=== PATIENT | female | born 1970 | race American Indian/Alaskan Native ===

== ENCOUNTER 2018-05-15 13:42 | Emergency (ER) | payer SELFPAY ==
--- NOTE | 2018-05-15 13:54 | Emergency Department Report ---
Blank Doc - Documentation Documentation: Patient comes in for fatigue times 1 week. Hx/o anemia. No pain. This initial assessment diagnostic orders/clinical plan/treatment (s) is/Are subject change based on patient's health status, clinical progression and re- assessment by fellow clinical providers in the ED. Further treatment and work-up at subsequent clinical providers discretion. Patient/guardians urged not to elope from their condition may be serious if not clinically assessed and managed. Initial order include:
[2018-05-15 14:10] LABS: Basophils % (Auto) 0.6 % (0.0-1.8); Eosinophils % (Auto) 0.4 % (0.0-4.3); Hematocrit 33.1 % (30.3-42.9); Hemoglobin 10.7 gm/dl (10.1-14.3); Lymphocytes # (Auto) 1.5 K/mm3 (1.2-5.4); Mean Corpuscular HGB Conc 32 % (30-34); Mean Corpuscular Volume 71 fl (79-97); Monocytes # (Auto) 0.4 K/mm3 (0.0-0.8); Monocytes % (Auto) 7.6 % (0.0-7.3); Platelet Count 358 K/mm3 (140-440); Red Blood Count 4.66 M/mm3 (3.65-5.03)
[2018-05-15 14:12] LABS: Mean Corpuscular Hemoglobin 23 pg (28-32); Red Cell Distribution Width 20.1 % (13.2-15.2)
[2018-05-15 14:34] LABS: Alanine Aminotransferase 15 units/L (7-56); Albumin 4.2 g/dL (3.9-5); BUN/Creatinine Ratio 13; Blood Urea Nitrogen 10 mg/dL (7-17); Calcium 8.6 mg/dL (8.4-10.2); Hemolysis Index 14
[2018-05-15 15:27] LABS: Bilirubin,Urine NEG (Negative); Blood,Urine NEG (Negative); Color,Urine Colorless (Yellow); Protein,Urine <15 mg/dL mg/dL (Negative); Urobilinogen,Urine < 2.0 mg/dL (<2.0); WBC,Urine < 1.0 /HPF (0.0-6.0)
--- NOTE | 2018-05-15 15:35 | Emergency Department Report ---
HPI - General Chief Complaint: Dizziness Time Seen by Provider: 05/15/18 13:50 - HPI HPI: 48-year-old female presents to the emergency department with a 2 to three-day history of generalized fatigue. Patient has a history of iron deficiency anemia and thought that she might be having an exacerbation of this as she has been eating a lot of ice and says that she feels she does when she has a low hemoglobin level. Otherwise she denies any significant past medical history. She has not taken anything for her symptoms prior to presentation. She denies any fever, headache, chest pain, shortness of breath, nausea, vomiting. No recent travel or sick contacts at home. ED Past Medical Hx - Past Medical History Additional medical history: AMENIA - Surgical History Additional Surgical History: C SECTION GASTRIC BYPASS/ TUBAL LIG. - Social History Smoking Status: Never Smoker Substance Use Type: None - Medications Home Medications: Home Medications Medication Instructions Recorded Confirmed Last Taken Type Ondansetron [Zofran Odt] 4 mg PO Q8HR PRN #12 tab.rapdis 05/15/18 Unknown Rx ED Review of Systems ROS: Stated complaint: VERY COLD/WEAK Other details as noted in HPI Constitutional: other (fatigue). denies: fever Eyes: denies: eye pain, vision change ENT: denies: ear pain, throat pain Respiratory: denies: cough, shortness of breath Cardiovascular: denies: chest pain, palpitations Gastrointestinal: denies: abdominal pain, vomiting Genitourinary: denies: dysuria, discharge Musculoskeletal: denies: back pain, arthralgia Skin: denies: rash, lesions Neurological: denies: headache, numbness Physical Exam - Physical Exam Vital Signs: Vital Signs 05/15/18 13:51 Temperature 97.6 F Pulse Rate 94 H Respiratory 18 Rate Blood Pressure 152/45 O2 Sat by Pulse 100 Oximetry Physical Exam: GENERAL: The patient is well-developed well-nourished. HEENT: Normocephalic. Atraumatic. Patient has moist mucous membranes. EYES: Extraocular motions are intact. Pupils are equal and reactive to light bilaterally. NECK: Supple. Trachea is midline. CHEST/LUNGS: Clear to auscultation. There is no respiratory distress noted. HEART/CARDIOVASCULAR: Regular. There is no tachycardia. There is no obvious murmur. ABDOMEN: There is no abdominal distention. SKIN: Skin is warm and dry. NEURO: The patient is awake, alert, and oriented. The patient is cooperative. The patient has no focal neurologic deficits. The patient has normal speech. Cranial nerves II through XII grossly intact. MUSCULOSKELETAL: There is no tenderness or deformity. There is no limitation range of motion. There is no evidence of acute injury. ED Course Vital Signs 05/15/18 13:51 Temperature 97.6 F Pulse Rate 94 H Respiratory 18 Rate Blood Pressure 152/45 O2 Sat by Pulse 100 Oximetry ED Medical Decision Making - Lab Data Result diagrams: 05/15/18 14:00 05/15/18 14:00 - Radiology Data Radiology results: image reviewed interpreted by me: Xray of the right shoulder shows some degenerative changes but no fracture, dislocation or any acute process. - Medical Decision Making This patient presents to the emergency department with a complaint of a 2-3 day history of increased fatigue. She thought that she might be anemic secondary to some previous episodes of anemia requiring transfusion or symptomatically anemia in the past. However her hemoglobin today is greater than 10. She essentially had a normal metabolic panel except for mildly low decreased potassium level that was replaced with potassium chloride. On examination the patient does not have a focal, motor or sensory deficits in her cranial nerves have been intact. TSH level was normal as well. The patient also separately complained of right shoulder pain so an x-ray was done that showed some degenerative changes but otherwise no fracture, dislocation or any acute process. Despite the patient's complaint of fatigue, patient was seen ambulating around the emergency department and appears stable and full of energy. Patient had some complaints of nausea but also was seen eating food. Patient's vital signs were stable throughout her ED course. For these reasons the patient appears safe for discharge home at this time. She was given a prescription for antiemetics and encouraged follow-up with a primary care physician. She will return to the ER with any worsening of her symptoms or any acute distress. - Differential Diagnosis anemia, hypothyroidism, electrolyte abnormalities, UTI Critical Care Time: No Critical care attestation.: If time is entered above; I have spent that time in minutes in the direct care of this critically ill patient, excluding procedure time. ED Disposition Clinical Impression: Nausea, Hypokalemia, Elevated blood pressure reading Fatigue Qualifiers: Fatigue type: unspecified Qualified Code(s): R53.83 - Other fatigue Right shoulder pain Qualifiers: Chronicity: acute Qualified Code(s): M25.511 - Pain in right shoulder Disposition: DC-01 TO HOME OR SELFCARE Is pt being admited?: No Condition: Stable Instructions: Hypokalemia (ED), Arthralgia (ED), Fatigue (ED) Additional Instructions: Please follow-up with your primary care physician in the next few days. Return to the emergency Department with any worsening of your symptoms or any acute distress. Prescriptions: Ondansetron [Zofran Odt] 4 mg PO Q8HR PRN #12 tab.rapdis PRN Reason: Nausea Referrals: Primary Care Physician, Your [Other] - 2-3 Days Time of Disposition: 16:33
[2018-05-15] MEDS ORDERED: TYLENOL ONE (15:40)
[2018-05-15] MEDS ORDERED: ZOFRAN ODT PO ONE (15:46)
[2018-05-15] MEDS ORDERED: ZOFRAN IM ONE (16:31)
[2018-05-15] MEDS ORDERED: K-DUR PO ONE (16:36)
--- NOTE | 2018-05-15 16:45 | XRay Report ---
PROCEDURE: XR SHOULDER 2+V RT TECHNIQUE: 3 views right shoulder HISTORY: right shoulder pain COMPARISONS: None FINDINGS: Normal bony mineralization. Calcification along the expected supraspinatus insertion compatible with calcific tendinitis. Mild soft tissue reticulation projects over the acromion and superior lateral deltoid. Mild soft tissue prominence at the acromioclavicular joint with minimal degenerative spurring. Glenohumeral joint space is unremarkable. Scapula is intact. Imaged right lung apex is clear. IMPRESSION: Calcific tendinitis distal supraspinatus. Mild before meals hypertrophy. Recommend correlation with MRI right shoulder.. This document is electronically signed by Mahsa Valentin MD., May 15 2018 04:42:46 PM ET
[2018-05-15 16:51] VITALS: BP 132/80
== END 2018-05-15 16:50 | disposition home or self-care (01) ==
LOC: ED 13:42
DX: R53.83 Other fatigue (principal); M25.511 Pain in right shoulder; E87.6 Hypokalemia; D64.9 Anemia, unspecified; D50.9 Iron deficiency anemia, unspecified
CPT/HCPCS: 36415; 73030; 80053; 81001; 83735; 84443; 85025; 86850; 86900; 86901; 96372; 99284; J2405; Q0162

== ENCOUNTER 2018-05-16 21:44 | Emergency (ER) | payer OTHER ==
[2018-05-16] MEDS ORDERED: NACL 0.9% 1000 ML 1,000 ML IV ONE (22:19)
[2018-05-16] MEDS ORDERED: ZOFRAN IV ONE (22:20)
--- NOTE | 2018-05-16 22:21 | Emergency Department Report ---
ED Abdominal Pain HPI - General Chief Complaint: Psych Stated Complaint: ANXIETY/ABD PAIN Time Seen by Provider: 05/16/18 22:13 Source: patient, EMS Mode of arrival: Ambulatory Limitations: No Limitations - History of Present Illness Initial Comments: Patient is a 48-year-old female that presents emergency room with complaints of epigastric pain and anxiety and depression. Patient states that she generalized stress lately due to family . Patient states she also been having nausea and vomiting. Patient states she is unable to eat due to the epigastric pain and nausea and vomiting for the past 3 hours. Patient states the pain is out of 10. Patient states the pain does not radiate. Patient denies chest pain shortness of breath. Patient states that the pain is better with rest and worse with palpation and movement. Patient denies diarrhea. Patient denies fever. Patient denies chills. Patient denies suicidal and homicidal ideations. Patient states she was seen here yesterday and was improving. However patient states that due to the fact she started becoming stressed out her symptoms flared back up. MD Complaint: abdominal pain -: Sudden Location: epigastric Radiation: none Migration to: no migration Severity: severe Severity scale (0 -10): 10 Quality: cramping Consistency: constant Improves With: rest Worsens With: vomiting, movement Associated Symptoms: nausea, vomiting. denies: diarrhea, fever, chills, constipation, dysuria, hematemesis, hematochezia, melena, hematuria, anorexia, syncope - Related Data LMP (females 10-50): unknown Previous Rx's Medication Instructions Recorded Last Taken Type Esomeprazole Magnesium [NexIUM] 40 mg PO QDAY #20 capsule. 05/17/18 Unknown Rx Ondansetron [Zofran ODT TAB] 4 mg PO Q8HR PRN #12 tab.rapdis 05/17/18 Unknown Rx Allergies Allergy/AdvReac Type Severity Reaction Status Date / Time No Known Allergies Allergy Verified 05/15/18 13:43 ED Review of Systems ROS: Stated complaint: ANXIETY/CHEST PAIN Other details as noted in HPI Constitutional: denies: chills, fever Eyes: denies: eye pain, eye discharge, vision change ENT: denies: ear pain, throat pain Respiratory: denies: cough, shortness of breath, wheezing Cardiovascular: denies: chest pain, palpitations Endocrine: no symptoms reported Gastrointestinal: abdominal pain, nausea, vomiting. denies: diarrhea Genitourinary: denies: urgency, dysuria, discharge Musculoskeletal: denies: back pain, joint swelling, arthralgia Skin: denies: rash, lesions Neurological: denies: headache, weakness, paresthesias Psychiatric: anxiety, depression. denies: auditory hallucinations, visual hallucinations, homicidal thoughts, suicidal thoughts Hematological/Lymphatic: denies: easy bleeding, easy bruising ED Past Medical Hx - Past Medical History Previous Medical History?: Yes Additional medical history: AMENIA. Low K+ - Surgical History Past Surgical History?: Yes Additional Surgical History: C SECTION GASTRIC BYPASS/ TUBAL LIG. - Family History Family history: no significant - Social History Smoking Status: Never Smoker Substance Use Type: None - Medications Home Medications: Home Medications Medication Instructions Recorded Confirmed Last Taken Type Esomeprazole Magnesium [NexIUM] 40 mg PO QDAY #20 capsule. 05/17/18 Unknown Rx Ondansetron [Zofran ODT TAB] 4 mg PO Q8HR PRN #12 tab.waylon 05/17/18 Unknown Rx ED Physical Exam - General Limitations: No Limitations General appearance: alert, in no apparent distress - Head Head exam: Present: atraumatic, normocephalic - Eye Eye exam: Present: normal appearance, PERRL Pupils: Present: normal accommodation - ENT ENT exam: Present: mucous membranes moist - Neck Neck exam: Present: normal inspection - Respiratory Respiratory exam: Present: normal lung sounds bilaterally. Absent: respiratory distress - Cardiovascular Cardiovascular Exam: Present: regular rate, normal rhythm. Absent: systolic murmur, diastolic murmur, rubs, gallop - GI/Abdominal GI/Abdominal exam: Present: soft, tenderness (epigastric tenderness), normal bowel sounds - Extremities Exam Extremities exam: Present: normal inspection - Back Exam Back exam: Present: normal inspection - Neurological Exam Neurological exam: Present: alert, oriented X3 - Psychiatric Psychiatric exam: Present: normal affect, normal mood - Skin Skin exam: Present: warm, dry, intact, normal color. Absent: rash ED Course Vital Signs 05/16/18 05/16/18 05/17/18 22:02 22:09 01:22 Temperature 98.1 F 97.9 F Pulse Rate 72 69 Respiratory 20 20 18 Rate Blood Pressure 147/97 160/87 [Right] O2 Sat by Pulse 100 100 100 Oximetry - Reevaluation(s) Reevaluation #1: Discussed all results with patient. Patient voiced understanding of results. Patient will be given a by mouth challenge. Patient was given pain medication. The patient tolerates by mouth challenge patient will be discharged home. 05/17/18 00:02 Patient tolerated by mouth intake. Patient states her pain has resolved. Patient will be prepared for discharge. Patient given discharge instructions. Patient voiced understanding of discharge instructions 05/17/18 00:57 ED Medical Decision Making - Lab Data Result diagrams: 05/16/18 22:35 05/16/18 22:35 - Radiology Data Radiology results: report reviewed PROCEDURE: CT ABDOMEN PELVIS WO CON TECHNIQUE: Computerized axial tomography of the abdomen and pelvis was performed without intravenous contrast. This study is performed without intravascular contrast material and its sensitivity for abdominal and pelvic pathology, including neoplasms, inflammation, abscess, free fluid, thrombosis, arterial dissection and infarction, is reduced compared with a contrast enhanced study. HISTORY: abd pain COMPARISONS: None . FINDINGS: Visualized lower thorax: No significant abnormality. Liver: Normal size and attenuation. Spleen: Normal size and attenuation. Gallbladder and biliary system: Normal. Pancreas: Normal. Adrenals: Normal. Kidneys: Normal. GI tract: The stomach is normal. There has been extensive previous surgery for gastric region and upper stomach. The small bowel has a normal caliber. No obstruction is seen. There is significant gas and fecal debris throughout the colon. Constipation is suspected. The appendix is normal. . Lymph nodes and mesentery: Normal. Vasculature: Normal.. Bladder: Normal. Reproductive organs: Normal. Peritoneum: No free fluid. Musculoskeletal structures: No significant abnormality. Other: None. IMPRESSION: There is no evidence of intestinal or urinary tract obstruction. No ileus or enteritis. There is significant gas and fecal debris throughout the colon, constipation is suspected. The appendix is normal. Previous extensive surgery in the epigastric and upper stomach region. Gastric bypass suspected. . - Medical Decision Making Patient is a 48-year-old female that presents emergency room with complaints of nausea and vomiting and abdominal pain. Patient found to have gastritis. Patient's CT negative. Patient's labs unremarkable. Patient tolerated by mouth challenge. Patient tolerated by mouth intake. - Differential Diagnosis gastritis. Stress. Anxiety depression. Nausea vomiting Critical care attestation.: If time is entered above; I have spent that time in minutes in the direct care of this critically ill patient, excluding procedure time. ED Disposition Clinical Impression: Epigastric pain, Stress reaction, Anxiety and depression Abdominal pain Qualifiers: Abdominal location: epigastric Qualified Code(s): R10.13 - Epigastric pain Nausea & vomiting Qualifiers: Vomiting type: unspecified Vomiting Intractability: non-intractable Qualified Code(s): R11.2 - Nausea with vomiting, unspecified Disposition: TO HOME OR SELFCARE Is pt being admited?: No Does the pt Need Aspirin: No Condition: Stable Instructions: Gastritis (ED), Diet for Ulcers and Gastritis (ED), Stress (ED), Depression (ED), Acute Nausea and Vomiting (ED), Anxiety (ED) Additional Instructions: Patient to follow up with primary care in 2-3 days. Patient to return to ER if condition worsens. Patient to follow up with inspector finishing in 2-3 days. Patient to eat reflux diet. Patient increase water. Patient to take meds as directed. Follow-up with psychiatrist in 2-3 days. Prescriptions: Esomeprazole Magnesium [NexIUM] 40 mg PO QDAY #20 capsule. Ondansetron [Zofran ODT TAB] 4 mg PO Q8HR PRN #12 tab.rapdis PRN Reason: Nausea Referrals: TAYLOR DUGGAN [Other] - 2-3 Days YURIDIA ELIZONDO MD [Staff Physician] - 2-3 Days [facility] [Outside] - 2-3 Days Time of Disposition: 01:04
[2018-05-16 22:46] LABS: Basophils # (Auto) 0.1 K/mm3 (0.0-0.1); Basophils % (Auto) 0.9 % (0.0-1.8); Eosinophils % (Auto) 0.3 % (0.0-4.3); Hematocrit 32.4 % (30.3-42.9); Hemoglobin 10.5 gm/dl (10.1-14.3); Lymphocytes # (Auto) 1.8 K/mm3 (1.2-5.4); Lymphocytes % (Auto) 28.1 % (13.4-35.0); Mean Corpuscular HGB Conc 32 % (30-34); Mean Corpuscular Volume 71 fl (79-97); Monocytes # (Auto) 0.5 K/mm3 (0.0-0.8); Platelet Count 365 K/mm3 (140-440); Red Blood Count 4.59 M/mm3 (3.65-5.03)
[2018-05-16 22:48] LABS: Red Cell Distribution Width 20.1 % (13.2-15.2)
[2018-05-16 23:02] LABS: Alanine Aminotransferase 14 units/L (7-56); Albumin 4.6 g/dL (3.9-5); BUN/Creatinine Ratio 12; Blood Urea Nitrogen 7 mg/dL (7-17); Calcium 9.1 mg/dL (8.4-10.2); Hemolysis Index 6
--- NOTE | 2018-05-16 23:33 | Cat Scan Report ---
PROCEDURE: CT ABDOMEN PELVIS WO CON TECHNIQUE: Computerized axial tomography of the abdomen and pelvis was performed without intravenous contrast. This study is performed without intravascular contrast material and its sensitivity for ab dominal and pelvic pathology, including neoplasms, inflammation, abscess, free fluid, thrombosis, art erial dissection and infarction, is reduced compared with a contrast enhanced study. HISTORY: abd pain COMPARISONS: None . FINDINGS: Visualized lower thorax: No significant abnormality. Liver: Normal size and attenuation. Spleen: Normal size and attenuation. Gallbladder and biliary system: Normal. Pancreas: Normal. Adrenals: Normal. Kidneys: Normal. GI tract: The stomach is normal. There has been extensive previous surgery for gastric region and up per stomach. The small bowel has a normal caliber. No obstruction is seen. There is significant gas a nd fecal debris throughout the colon. Constipation is suspected. The appendix is normal. . Lymph nodes and mesentery: Normal. Vasculature: Normal.. Bladder: Normal. Reproductive organs: Normal. Peritoneum: No free fluid. Musculoskeletal structures: No significant abnormality. Other: None. IMPRESSION: There is no evidence of intestinal or urinary tract obstruction. No ileus or enteritis. There is significant gas and fecal debris throughout the colon, constipation is suspected. The append ix is normal. Previous extensive surgery in the epigastric and upper stomach region. Gastric bypass suspected. . This document is electronically signed by Hannah Trujillo DO., May 16 2018 11:30:35 PM ET
[2018-05-16] MEDS ORDERED: ALUM-MAG HYDROX-SIMETH 200-200-20MG/5ML PO ONE (23:49)
[2018-05-16] MEDS ORDERED: LIDOCAINE VISCOUS 2% PO ONE (23:49)
[2018-05-16] MEDS ORDERED: DILAUDID IV ONE (23:50)
[2018-05-17 01:22] VITALS: BP 160/87
== END 2018-05-17 01:23 | disposition home or self-care (01) ==
LOC: ED 21:44
DX: R10.13 Epigastric pain (principal); F41.9 Anxiety disorder, unspecified; F32.9 Major depressive disorder, single episode, unspecified; R11.2 Nausea with vomiting, unspecified; Z86.2 Personal history of diseases of the blood and blood-forming organs and certain disorders involving the immune mechanism; Z98.84 Bariatric surgery status; Z98.51 Tubal ligation status
CPT/HCPCS: 36415; 74176; 80053; 85025; 96361; 96374; 96375; 99285; G0480; J1170; J2405; J7030; 80320

== ENCOUNTER 2018-05-23 03:24 | Emergency (ER) | payer OTHER ==
[2018-05-23] MEDS ORDERED: ALUM-MAG HYDROX-SIMETH 200-200-20MG/5ML PO ONE (04:15)
[2018-05-23] MEDS ORDERED: PEPCID PO ONE (04:15)
[2018-05-23 04:17] LABS: Basophils % (Auto) 0.2 % (0.0-1.8); Eosinophils % (Auto) 0.2 % (0.0-4.3); Hematocrit 32.6 % (30.3-42.9); Hemoglobin 10.4 gm/dl (10.1-14.3); Lymphocytes # (Auto) 1.7 K/mm3 (1.2-5.4); Lymphocytes % (Auto) 36.9 % (13.4-35.0); Mean Corpuscular HGB Conc 32 % (30-34); Mean Corpuscular Volume 71 fl (79-97); Monocytes # (Auto) 0.3 K/mm3 (0.0-0.8); Monocytes % (Auto) 5.5 % (0.0-7.3); Platelet Count 359 K/mm3 (140-440); Red Blood Count 4.59 M/mm3 (3.65-5.03); Red Cell Distribution Width 20.6 % (13.2-15.2)
[2018-05-23 04:31] LABS: BUN/Creatinine Ratio 20; Blood Urea Nitrogen 12 mg/dL (7-17); Hemolysis Index 6
[2018-05-23] MEDS ORDERED: ZOFRAN ODT PO ONE (04:38)
[2018-05-23] MEDS ORDERED: ZOFRAN ODT ONE (04:42)
--- NOTE | 2018-05-23 04:49 | XRay Report ---
PROCEDURE: XR CHEST ROUTINE 2V TECHNIQUE: PA and lateral chest radiographs HISTORY: cp COMPARISONS: CT abdomen and pelvis 05/16/2018 FINDINGS: No mediastinal shift. Cardiac silhouette is not enlarged. No pneumothorax, effusion, or focal pulmo nary opacity. No acute skeletal finding. IMPRESSION: No focal pulmonary opacity. This document is electronically signed by Markus Escobar MD., May 23 2018 04:47:24 AM ET
[2018-05-23 04:53] LABS: INR 0.95 (0.87-1.13)
[2018-05-23] MEDS ORDERED: PEPCID ONE ×2 (06:21→06:23)
[2018-05-23] MEDS ORDERED: ALUM-MAG HYDROX-SIMETH 200-200-20MG/5ML ONE (06:23)
[2018-05-23] MEDS ORDERED: ZOFRAN IM ONE (06:59)
[2018-05-23] MEDS ORDERED: SUBLIMAZE IM ONE (06:59)
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
[2018-05-23 07:33] LABS: Alanine Aminotransferase 12 units/L (7-56); Albumin 4.7 g/dL (3.9-5); Bilirubin,Direct < 0.2 mg/dL (0-0.2)
[2018-05-23 09:21] VITALS: BP 158/94
== END 2018-05-23 09:11 | disposition left against medical advice (07) ==
LOC: ED 03:24
DX: R10.13 Epigastric pain (principal); D64.9 Anemia, unspecified; Z98.51 Tubal ligation status; X08.8XXA Exposure to other specified smoke, fire and flames, initial encounter; Y93.89 Activity, other specified; Y92.89 Other specified places as the place of occurrence of the external cause
CPT/HCPCS: 36415; 71046; 80048; 80076; 83690; 84484; 85025; 85610; 93005; 93010; 96372; 99284; G0480; J2405; J3010; 80320; Q0162

== ENCOUNTER 2018-05-23 09:22 | Emergency (ER) | payer OTHER ==
[2018-05-23] MEDS ORDERED: CATAPRES PO ONE (10:57)
[2018-05-23 11:16] VITALS: BP 151/91
[2018-05-23] MEDS ORDERED: ULTRAM PO ONE (11:28)
[2018-05-23] MEDS ORDERED: TORADOL IM ONE (11:28)
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
--- NOTE | 2018-05-23 13:47 | Cat Scan Report ---
CT HEAD WITHOUT CONTRAST: HISTORY: Headache. TECHNIQUE: Sequential 2.5mm CT images. COMPARISON: none. FINDINGS: Cerebral Parenchyma: Within normal limits. Cerebellum: Within normal limits. Brainstem: Within normal limits. Ventricles: Normal. Sella: Normal. Extra-axial spaces: Normal. Basal Cisterns: Normal. Intracranial Hemorrhage: None. Midline Shift: None. Calvarium: Normal. Sinuses: Normal. Mastoid Air Cells: Normal. Visualized Orbits: Normal. IMPRESSION: Cranial CT scan within normal limits.
== END 2018-05-23 14:24 | disposition home or self-care (01) ==
LOC: ED 09:22
DX: I10 Essential (primary) hypertension (principal); Z98.51 Tubal ligation status; X08.8XXA Exposure to other specified smoke, fire and flames, initial encounter; Y93.89 Activity, other specified; Y92.89 Other specified places as the place of occurrence of the external cause; Y99.8 Other external cause status
CPT/HCPCS: 70450

== ENCOUNTER 2018-06-04 10:47 | Emergency (ER) | payer SELFPAY ==
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
[2018-06-04] MEDS ORDERED: IBUPROFEN PO ONE (11:57)
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
[2018-06-04] MEDS ORDERED: TYLENOL PO ONE (12:57)
[2018-06-04] MEDS ORDERED: GEODON IM ONE (12:57)
[2018-06-04] MEDS ORDERED: WATER FOR INJ (PF) ONE (13:02)
--- NOTE | 2018-06-04 13:05 | XRay Report ---
RIGHT SHOULDER RADIOGRAPHS INDICATION: Pain. COMPARISON: 05/15/2018. FINDINGS: Frontal and Y views of the right shoulder again demonstrate normal humeral head contour and intact glenohumeral and acromioclavicular articulations. Faint calcifications along the rotator cuff distally also noted as also a 6 mm calcification just above the glenoid. Normal imaged scapula, right lung and ribs. CONCLUSION: No acute right shoulder radiographic abnormality with calcific tendinitis again seen, as described. Thank you for the opportunity to participate in this patient's care.
--- NOTE | 2018-06-04 13:07 | XRay Report ---
RIGHT HUMERUS RADIOGRAPHS INDICATION: Pain. COMPARISON: None similar. FINDINGS: AP and lateral right humerus radiographs demonstrate intact bones, included joints and soft tissues. Faint calcifications adjacent to the right humeral head noted. CONCLUSION: No acute right humerus radiographic abnormality with right shoulder calcific tendinitis, as described. Thank you for the opportunity to participate in this patient's care.
[2018-06-04 13:19] LABS: Basophils % (Auto) 0.3 % (0.0-1.8); Hematocrit 30.7 % (30.3-42.9); Hemoglobin 9.9 gm/dl (10.1-14.3); Lymphocytes # (Auto) 1.2 K/mm3 (1.2-5.4); Lymphocytes % (Auto) 14.5 % (13.4-35.0); Mean Corpuscular HGB Conc 32 % (30-34); Mean Corpuscular Volume 73 fl (79-97); Monocytes # (Auto) 0.5 K/mm3 (0.0-0.8); Monocytes % (Auto) 6.6 % (0.0-7.3); Platelet Count 321 K/mm3 (140-440); Red Blood Count 4.23 M/mm3 (3.65-5.03)
[2018-06-04 13:20] LABS: Red Cell Distribution Width 23.1 % (13.2-15.2)
[2018-06-04 13:24] LABS: BUN/Creatinine Ratio 12; Blood Urea Nitrogen 6 mg/dL (7-17); Calcium 8.8 mg/dL (8.4-10.2); Hemolysis Index 5
[2018-06-04 13:25] LABS: Bacteria,Urine 1+ /HPF (Negative); Bilirubin,Urine NEG (Negative); Blood,Urine SM (Negative); Color,Urine Yellow (Yellow); Mucus,Urine FEW /HPF
[2018-06-04 13:33] LABS: Amphetamine Screen,Urine PRESUMPTIVE NEGATIVE; Benzodiazepines Screen,Urine PRESUMPTIVE NEGATIVE; Methadone Screen,Urine PRESUMPTIVE NEGATIVE; Opiate Screen,Urine PRESUMPTIVE NEGATIVE
[2018-06-04 13:54] LABS: Cannabinoid Screen,Urine PRESUMPTIVE POSITIVE; Cocaine Screen,Urine PRESUMPTIVE POSITIVE
[2018-06-04] MEDS ORDERED: K-DUR PO ONE (15:08)
[2018-06-05] MEDS ORDERED: TYLENOL PO ONE (03:45)
[2018-06-05] MEDS ORDERED: IBUPROFEN PO ONE (08:12)
[2018-06-05] MEDS ORDERED: ULTRAM PO ONE (09:35)
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
[2018-06-05 13:52] VITALS: BP 134/79
== END 2018-06-05 15:02 | disposition home or self-care (01) ==
LOC: ED 10:47 → EEVIPCON 10:47 → ED 06-05 15:02
DX: S40.021A Contusion of right upper arm, initial encounter (principal); F14.929 Cocaine use, unspecified with intoxication, unspecified; D64.9 Anemia, unspecified; Z98.51 Tubal ligation status; Z79.899 Other long term (current) drug therapy; Y09 Assault by unspecified means; Y93.89 Activity, other specified; Y92.89 Other specified places as the place of occurrence of the external cause; Y99.8 Other external cause status
CPT/HCPCS: 36415; 73030; 73060; 80048; 80307; 81001; 84132; 84703; 85025; 96372; 99284; G0480; J3486; 80320

== ENCOUNTER 2018-09-23 12:49 | Emergency (ER) | payer SELFPAY ==
[2018-09-23 12:53] VITALS: BP 145/100
--- NOTE | 2018-09-23 13:13 | Emergency Department Report ---
Blank Doc - Documentation Documentation: 48 y o female presents to ED today for headache and blurry vision from elevated BP and glucose does not take meds
== END 2018-09-23 18:44 | disposition left against medical advice (07) ==
LOC: ED 12:49
DX: R51 Headache (principal); Z53.21 Procedure and treatment not carried out due to patient leaving prior to being seen by health care provider